=== PATIENT | male | born 1960 | race Caucasian/White ===

== ENCOUNTER → 2016-11-26 | Outpatient (CLI) | payer BC ==
--- NOTE | 2016-11-26 13:03 | RAD ---
Indication abnormal thyroid function tests. Grayscale imaging targeted to the thyroid was performed. Note is made of a previous exam 04/16/2015. The right lobe of the thyroid measures approximately 1 x 1 x 3.7 cm. It has a very heterogeneous appearance. There are several nodules in the right lobe the largest measuring approximately 1 cm. The isthmus too has an inhomogeneous appearance. There are 2 nodules in the left lobe the larger measuring approximately 6 mm. The left lobe of the thyroid measures 3.7 x 1.1 x 1 cm. There are 2 nodules in the left lobe the largest measuring approximately 6 mm. IMPRESSION: Very heterogeneous thyroid. There are multiple nodules in the thyroid. The appearance overall is similar to the previous exam
== END | disposition home or self-care (01) ==
LOC: US 11:29
PROVIDERS: ATTEND Family Medicine
DX: E03.8 Other specified hypothyroidism (principal); E04.2 Nontoxic multinodular goiter
CPT/HCPCS: 76536